=== PATIENT | male | born 1990 | race Caucasian/White ===

== ENCOUNTER 2020-11-16 21:29 | Emergency (ER) | payer OTHER ==
[2020-11-16 21:36] VITALS: BP 140/60; PULSE 98; TEMP 98; BMI 38.9
[2020-11-16] MEDS ORDERED: CEPHALEXIN MONOHYDRATE 500 MG CAPSULE (UD) ONE (22:24)
[2020-11-16] MEDS ORDERED: SULFAMETHOXAZOLE/TRIMETHOPRIM 800MG/160MG D.S. TABLET PO ONE (22:24)
== END 2020-11-16 23:22 | disposition home or self-care (01) ==
LOC: JER 21:29 → JERFT 21:29
DX: L03.115 Cellulitis of right lower limb (principal); B86 Scabies
CPT/HCPCS: 99283-25

== ENCOUNTER 2021-07-20 23:25 | Emergency (ER) | payer OTHER ==
[2021-07-20 23:30] VITALS: BP 122/75; PULSE 97; TEMP 98.2; BMI 38.9
[2021-07-21] MEDS ORDERED: TETRACAINE 0.5% OPHTH SOLN 2 ML BOTTLE ONE (00:07)
[2021-07-21] MEDS ORDERED: ERYTHROMYCIN 0.5% OPHTHALMIC OINTMENT 3.5 GM TUBE OD ONE (00:14)
[2021-07-21] MEDS ORDERED: ERYTHROMYCIN 0.5% OPHTHALMIC OINTMENT 3.5 GM TUBE ONE (00:15)
== END 2021-07-21 00:26 | disposition home or self-care (01) ==
LOC: JER 23:25
DX: S05.01XA Injury of conjunctiva and corneal abrasion without foreign body, right eye, initial encounter (principal)
CPT/HCPCS: 99283-25

== ENCOUNTER 2021-08-28 18:04 | Emergency (ER) | payer OTHER ==
[2021-08-28 18:26] VITALS: BP 118/76; PULSE 95; TEMP 99.3; BMI 38.9
[2021-08-28] MEDS ORDERED: KETOROLAC TROMETHAMINE 30 MG/1 ML VIAL IM ONE (18:50)
[2021-08-28] MEDS ORDERED: LIDOCAINE 5% TOPICAL PATCH TP ONE (18:50)
[2021-08-28] MEDS ORDERED: diazePAM 5 MG TABLET PO ONE (18:50)
[2021-08-28] MEDS ORDERED: LIDOCAINE 5% TOPICAL PATCH ONE (18:53)
[2021-08-28] MEDS ORDERED: KETOROLAC TROMETHAMINE 30 MG/1 ML VIAL ONE (18:53)
[2021-08-28] MEDS ORDERED: diazePAM 5 MG TABLET ONE (18:53)
[2021-08-29] MEDS ORDERED: LIDOCAINE PATCH REMOVAL MC SCH (07:00)
== END 2021-08-28 20:24 | disposition home or self-care (01) ==
LOC: JERFT 18:04
PROC: 3E0233Z Introduction of Anti-inflammatory into Muscle, Percutaneous Approach (ICD-10-PCS; principal; 2021-08-28)
DX: M54.50 Low back pain, unspecified (principal)
CPT/HCPCS: 99284-25

== ENCOUNTER 2022-07-14 13:56 | Emergency (ER) | payer OTHER ==
[2022-07-14 14:02] VITALS: BP 140/89; PULSE 100; RESP 18; TEMP 99; BMI 37.2
[2022-07-14] MEDS ORDERED: DEXAMETHASONE SOD PHOSPHATE 10 MG/1 ML VIAL IM ONE (14:59)
[2022-07-14] MEDS ORDERED: DEXAMETHASONE SOD PHOSPHATE 10 MG/1 ML VIAL ONE (15:12)
[2022-07-14 15:36] LABS: THROAT:GRP A STREP NOT DETECTED (NOTDETECTED)
== END 2022-07-14 15:56 | disposition home or self-care (01) ==
LOC: JERFT 13:56
PROC: 3E023GC Introduction of Other Therapeutic Substance into Muscle, Percutaneous Approach (ICD-10-PCS; principal; 2022-07-14)
DX: J02.9 Acute pharyngitis, unspecified (principal)
CPT/HCPCS: 0241U-QW; 87651; 99284-25; J1100

== ENCOUNTER 2024-01-02 18:51 | Emergency (ER) | payer OTHER ==
[2024-01-02 18:59] VITALS: BP 121/68; PULSE 80; RESP 18; TEMP 98.8; BMI 36.8
[2024-01-02 21:27] LABS: BASO % 0.6 % (0-2.0); EOS % 1.3 % (0-4.5); HEMOGLOBIN 14.9 GM/dL (11.7-16.9); MCH 28.5 pg (25.7-33.7); MCHC 34.6 g/dl (32.0-35.9); MEAN CELL VOLUME 82.4 fl (80-96); MEAN PLT VOLUME 8.6 fl (7.5-11.1); MONO % 7.1 % (3.8-10.2); PLATELET COUNT 196 10^3/uL (134-434); RBC 5.21 M/mm3 (4.00-5.60); RDW 13.2 % (11.9-15.9); WHITE BLOOD COUNT 6.9 K/mm3 (4.0-10.0)
[2024-01-02 21:28] LABS: URINE APPEARANCE CLEAR; URINE BILIRUBIN NEGATIVE (NEGATIVE); URINE COLOR YELLOW; URINE GLUCOSE (UA) NEGATIVE (NEGATIVE); URINE KETONE TRACE (NEGATIVE); URINE LEUK ESTERASE NEGATIVE (NEGATIVE); URINE NITRITE NEGATIVE (NEGATIVE); URINE PROTEIN NEGATIVE (NEGATIVE)
[2024-01-02 21:53] LABS: POTASSIUM 3.9 mmol/L (3.5-5.1)
[2024-01-02 21:55] LABS: CALCIUM 9.1 mg/dL (8.5-10.1)
[2024-01-02 21:58] LABS: BLOOD UREA NITROGEN 19.4 mg/dL (7-18); CREATININE 1.3 mg/dL (0.55-1.3)
== END 2024-01-03 00:03 | disposition home or self-care (01) ==
LOC: JER 18:51
DX: R10.32 Left lower quadrant pain (principal); D16.20 Benign neoplasm of long bones of unspecified lower limb; R11.0 Nausea; R50.9 Fever, unspecified
CPT/HCPCS: 36415; 74177-TC; 80048; 81003; 85025; 87086; 99285-25; Q9967

== ENCOUNTER 2024-05-13 18:09 | Emergency (ER) | payer OTHER ==
[2024-05-13 18:42] VITALS: BP 132/85; PULSE 72; RESP 18; TEMP 97.7; BMI 37.2
[2024-05-13] MEDS ORDERED: ACETAMINOPHEN 500 MG TABLET (FP) ONE (19:11)
[2024-05-13] MEDS: ACETAMINOPHEN 500 MG TABLET (FP) PO ONE (19:18)
== END 2024-05-13 21:37 | disposition home or self-care (01) ==
LOC: JER 18:09
DX: S06.0XAA Concussion with loss of consciousness status unknown, initial encounter (principal); R42 Dizziness and giddiness; V49.40XA Driver injured in collision with unspecified motor vehicles in traffic accident, initial encounter; Y92.410 Unspecified street and highway as the place of occurrence of the external cause
CPT/HCPCS: 70450-TC; 99284-25